=== PATIENT | female | born 1985 | race Caucasian/White ===

== ENCOUNTER → 2018-07-25 | Outpatient (CLI) | payer OTHER, MEDICAID | LOC: M RAD 11:21 | DX: G44.039 Episodic paroxysmal hemicrania, not intractable (principal) ==

== ENCOUNTER 2018-10-30 17:09 | Emergency (ER) | payer OTHER ==
[~2018-10-30] VITALS: Ht 172.7 cm; Wt 94.2 kg
[2018-10-30] MEDS ORDERED: ALPR0.5T3 (17:20)
[2018-10-30] MEDS ORDERED: VENL150C43 (17:20)
[2018-10-30] MEDS ORDERED: MIRT15TA3 (17:20)
[2018-10-30] MEDS ORDERED: AMPHET/DEXTR (17:20)
[2018-10-30] MEDS ORDERED: KETOROLAC 60 MG/2 ML VIAL (J1885) IM ONE (18:00)
[2018-10-30] MEDS ORDERED: METHOCARBAMOL 750 MG TAB PO ONE (18:00)
[2018-10-30] MEDS ORDERED: ROBA500T PO (18:27)
[2018-10-30] MEDS ORDERED: KETO10TAB PO (18:27)
[2018-10-30 18:32] VITALS: BP 120/77
== END 2018-10-30 18:34 | disposition home or self-care (01) ==
LOC: M ED 17:09
DX: M54.6 Pain in thoracic spine (principal); S02.5XXA Fracture of tooth (traumatic), initial encounter for closed fracture; X58.XXXA Exposure to other specified factors, initial encounter; Y92.89 Other specified places as the place of occurrence of the external cause; F41.9 Anxiety disorder, unspecified; M54.2 Cervicalgia; F17.210 Nicotine dependence, cigarettes, uncomplicated; Z88.1 Allergy status to other antibiotic agents; Z79.899 Other long term (current) drug therapy
CPT/HCPCS: 96372; 99283; J1885

== ENCOUNTER 2019-08-23 18:56 | Emergency (ER) | payer OTHER ==
[~2019-08-23] VITALS: Ht 172.7 cm; Wt 77.3 kg
[~2019-08-23 18:56] MED LIST: ALPR0.5T3; AMPHET/DEXTR; KETO10TAB PO; MIRT15TA3; ROBA500T PO; VENL150C43
[2019-08-23] MEDS ORDERED: MIRT1TAB15 (19:04)
[2019-08-23] MEDS ORDERED: PANT20TA2 (19:04)
[2019-08-23] MEDS ORDERED: AMPHET/DEXTR (19:04)
[2019-08-23] MEDS ORDERED: GABA-843 (19:04)
[2019-08-23] MEDS ORDERED: NS 1,000 ML IV ONE (19:45)
[2019-08-23 21:17] LABS: BASO # 0.1 10^3/uL (0.0-0.2); BASO % 0.9 % (0.0-1.0); EOS # 0.1 10^3/uL (0.0-0.5); EOS % 1.7 % (0.0-3.0); HEMOGLOBIN 13.1 g/dl (12.0-15.5); LYMPH # 2.1 10^3/uL (1.5-5.0); LYMPH % 30.4 % (24.0-44.0); MEAN CORPUSCULAR HEMOGLOBIN 31.2 pg (27.0-33.0); MEAN CORPUSCULAR HGB CONC 34.5 g/dl (32.0-36.5); MEAN CORPUSCULAR VOLUME 90.5 fl (80.0-96.0); MONO # 0.7 10^3/uL (0.0-0.8); MONO % 9.7 % (0.0-5.0); NEUTROPHILS % 56.9 % (36.0-66.0); PLATELET COUNT, AUTOMATED 347 10^3/uL (150-450)
--- NOTE | 2019-08-23 21:20 | REPVR ---
PROCEDURE INFORMATION: Exam: US Abdomen Limited, Right Upper Quadrant Exam date and time: 08/23/2019 8:43 PM Clinical history: 33 years old, female; Other: Jaundice; Abdominal pain; Epigastric; Additional info: Scleral icterus, ruq tenderness, pls look at liver also TECHNIQUE: Imaging protocol: Real-time ultrasound of the abdomen with image documentation. Examination was focused on the right upper quadrant. COMPARISON: No relevant prior studies available. FINDINGS: Liver: Mildly echogenic portal triads. Gallbladder: Contracted. No gallstones. Suspected moderate gallbladder wall thickening and mural edema. Small focus of increased echogenicity adherent to the anterior gallbladder wall with associated ringdown artifact, suggestive of adenomyomatosis. No definite pericholecystic fluid. Common bile duct: No stones. No ductal dilatation. Pancreas: Unremarkable as visualized. Right kidney: No mass. No definite stones. No hydronephrosis. IMPRESSION: 1. Contracted gallbladder with suspected moderate gallbladder wall thickening and mural edema, possibly reactive. If clinically indicated, HIDA scan would provide a more sensitive evaluation for acute gallbladder pathology. 2. Small focus of increased echogenicity adherent to the anterior gallbladder wall with associated ringdown artifact, suggestive of adenomyomatosis. 3. Mildly echogenic portal triads, a nonspecific finding which can be seen with hepatitis. Electronically signed by: Uzair Hugo On 08/23/2019 21:20:16 PM
[2019-08-23 21:34] LABS: BLOOD UREA NITROGEN 4 MG/DL (7-18); CALCIUM LEVEL 8.1 MG/DL (8.5-10.1); CARBON DIOXIDE LEVEL 27 MEQ/L (21-32); CHLORIDE LEVEL 106 MEQ/L (98-107); CREATININE FOR GFR 0.44 MG/DL (0.55-1.30); GLOMERULAR FILTRATION RATE > 60.0 (>60); GLUCOSE, FASTING 74 MG/DL (70-100); SODIUM LEVEL 139 MEQ/L (136-145)
[2019-08-23 21:35] LABS: HCG, SERUM QUALITATIVE NEGATIVE (NEGATIVE)
[2019-08-23 22:33] LABS: ALBUMIN 2.9 GM/DL (3.2-5.2); ALT/SGPT 1379 U/L (12-78); BILIRUBIN,DIRECT 6.3 MG/DL (0.0-0.2); BILIRUBIN,TOTAL 7.7 MG/DL (0.2-1.0); FREE T4 1.39 NG/DL (0.76-1.46); LIPASE 165 U/L (73-393); TOTAL PROTEIN 7.6 GM/DL (6.4-8.2)
[2019-08-23] MEDS ORDERED: LORazepam 1 MG TAB PO STA (22:43)
[2019-08-23] MEDS ORDERED: ISOVUE-370 76% 100ML VIAL (Q9967) As Ordered ONE (22:48)
--- NOTE | 2019-08-23 23:38 | REPVR ---
PROCEDURE INFORMATION: Exam: CT Abdomen And Pelvis With Contrast Exam date and time: 08/23/2019 11:13 PM Clinical history: 33 years old, female; Abnormal findings; Abnormal lab test; Elevated liver enzymes; Additional info: Jaundice, elev lfts, US shows no stone TECHNIQUE: Imaging protocol: Computed tomography of the abdomen and pelvis with intravenous contrast. Axial, coronal and sagittal reformatted images were created and reviewed. Radiation optimization: All CT scans at this facility use at least one of these dose optimization techniques: automated exposure control; mA and/or kV adjustment per patient size (includes targeted exams where dose is matched to clinical indication); or iterative reconstruction. Contrast material: ISOVUE 370; Contrast volume: 100 ml; Contrast route: IV; COMPARISON: US Abdomen 08/23/2019 8:36 PM FINDINGS: Liver: Mild hepatomegaly and nonspecific periportal edema. Gallbladder and bile ducts: Contracted gallbladder with moderate associated gallbladder wall thickening. No gallstones. Pancreas: Unremarkable. Spleen: Mild splenomegaly. Adrenals: Unremarkable. Kidneys and ureters: No mass. No radiodense calculi. No hydronephrosis. Stomach and bowel: No bowel wall thickening. No obstruction. No pneumatosis. Appendix: Findings suggestive of prior appendectomy. Intraperitoneal space: No free fluid. No organized fluid collection. No free air. Vasculature: Unremarkable. No aneurysm. Lymph nodes: No pathologically enlarged lymph nodes. Bladder: Unremarkable. Reproductive: Intrauterine device in place. Bones/joints: No acute osseous abnormality. Soft tissues: Small, fat containing supraumbilical hernia. IMPRESSION: 1. Mild hepatosplenomegaly and nonspecific periportal edema. 2. Moderate gallbladder wall thickening without radiodense gallstones, likely reactive. If clinically indicated, HIDA scan would provide a more sensitive evaluation for acute gallbladder pathology. 3. Additional findings, as above. Electronically signed by: Uzair Hugo On 08/23/2019 23:37:42 PM
[2019-08-24 00:09] VITALS: BP 114/75
[2019-08-26 13:17] LABS: HEPATITIS B SURFACE ANTIGEN NEGATIVE (NEGATIVE)
[2019-08-26 13:45] LABS: HEPATITIS B CORE ANTIBODY IGM NEGATIVE (NEGATIVE)
[2019-08-26 16:30] LABS: HEPATITIS A ANTIBODY IGM POSITIVE (NEGATIVE)
--- NOTE | 2019-09-03 13:12 | ED PDOC ---
Post-Departure Follow-Up radiology report faxed to Sophy Mendez MD Sep 03, 2019 13:12
== END 2019-08-24 00:18 | disposition home or self-care (01) ==
LOC: M ED 18:56
DX: R17 Unspecified jaundice (principal); B15.9 Hepatitis A without hepatic coma; K82.8 Other specified diseases of gallbladder; F11.21 Opioid dependence, in remission; Z79.899 Other long term (current) drug therapy; Z88.1 Allergy status to other antibiotic agents; F17.210 Nicotine dependence, cigarettes, uncomplicated
CPT/HCPCS: 36415; 74177; 76705; 80048; 80076; 83690; 84439; 84443; 84703; 85025; 86705; 86709; 86803; 87340; 96360; 99284; Q9967

== ENCOUNTER 2023-08-03 09:27 | Emergency (ER) | payer MEDICAID, OTHER ==
[~2023-08-03] VITALS: Ht 172.7 cm; Wt 92.2 kg
[~2023-08-03 09:27] MED LIST changes: +GABA-282; +MIRT1TAB15; +PANT20TA6
[2023-08-03] MEDS ORDERED: IBUP200C25 PO (09:49)
[2023-08-03 15:01] LABS: APPEARANCE, URINE HAZY (CLEAR); BACTERIA, URINE AUTO NEGATIVE (NEGATIVE); BILIRUBIN, URINE AUTO NEGATIVE (NEGATIVE); BLOOD, URINE BLOOD NEGATIVE (NEGATIVE); COLOR, URINE YELLOW (YELLOW); GLUCOSE, URINE (UA) AUTO NEGATIVE (NEGATIVE); KETONE, URINE AUTO NEGATIVE (NEGATIVE); LEUKOCYTE ESTERASE, URINE AUTO TRACE (NEGATIVE); MUCUS, URINE SMALL (NEGATIVE); NITRITE, URINE AUTO NEGATIVE (NEGATIVE); PROTEIN, URINE AUTO NEGATIVE (NEGATIVE); RBC, URINE AUTO 1 /HPF (0-3); SPECIFIC GRAVITY URINE AUTO 1.025 (1.002-1.035); SQUAMOUS EPITHELIAL CELL UR AU 6 /HPF (0-6); WBC, URINE AUTO 2 /HPF (0-3)
[2023-08-03 15:26] LABS: BARBITURATES URINE NEGATIVE (NEGATIVE); COCAINE METABOLITE URINE NEGATIVE (NEGATIVE); METHADONE URINE NEGATIVE (NEGATIVE); OPIATES URINE NEGATIVE (NEGATIVE); PHENCYCLIDINE URINE NEGATIVE (NEGATIVE)
[2023-08-03 15:27] LABS: AMPHETAMINES LEVEL URINE POSITIVE (NEGATIVE); BENZODIAZEPINES URINE POSITIVE (NEGATIVE); CANNABINOIDS URINE POSITIVE (NEGATIVE)
[2023-08-03 15:36] VITALS: BP 128/88; TEMP 98.1; O2SAT 100
== END 2023-08-03 15:38 | disposition left against medical advice (07) ==
LOC: M ED 09:27
DX: S86.112A Strain of other muscle(s) and tendon(s) of posterior muscle group at lower leg level, left leg, initial encounter (principal); M79.81 Nontraumatic hematoma of soft tissue; R60.0 Localized edema; C53.9 Malignant neoplasm of cervix uteri, unspecified; F41.9 Anxiety disorder, unspecified; F32.A Depression, unspecified; Y92.9 Unspecified place or not applicable; Y93.K1 Activity, walking an animal; Y99.9 Unspecified external cause status; Z88.1 Allergy status to other antibiotic agents; Z79.1 Long term (current) use of non-steroidal anti-inflammatories (NSAID); Z53.9 Procedure and treatment not carried out, unspecified reason

== ENCOUNTER 2025-02-06 12:10 | Outpatient (RCR) | payer OTHER ==
[~2025-02-06 12:10] MED LIST changes: +GABA-1172; -GABA-282; +IBUP200C25 PO
== END 2025-02-19 ==
LOC: M OUTALCOH 12:10
PROVIDERS: ATTEND Psychiatry & Neurology Psychiatry
DX: F13.20 Sedative, hypnotic or anxiolytic dependence, uncomplicated (principal); F14.20 Cocaine dependence, uncomplicated; F17.200 Nicotine dependence, unspecified, uncomplicated

== ENCOUNTER 2025-02-17 14:00 | Outpatient (RCR) | payer OTHER | END 2025-02-19 | LOC: M OUTALCOH 14:00 | PROVIDERS: ATTEND Psychiatry & Neurology Psychiatry | DX: F13.20 Sedative, hypnotic or anxiolytic dependence, uncomplicated (principal); F14.20 Cocaine dependence, uncomplicated; F17.200 Nicotine dependence, unspecified, uncomplicated ==

== ENCOUNTER → 2025-05-22 | Outpatient (RCR) | payer OTHER | LOC: M OUTALCOH 04-23 16:00 | PROVIDERS: ATTEND Psychiatry & Neurology Psychiatry | DX: F13.20 Sedative, hypnotic or anxiolytic dependence, uncomplicated (principal); F14.20 Cocaine dependence, uncomplicated; F17.200 Nicotine dependence, unspecified, uncomplicated | CPT/HCPCS: G0397 ×2 ==

== ENCOUNTER 2025-06-09 08:40 | Outpatient (RCR) | payer OTHER | END 2025-06-22 | LOC: M OUTALCOH 08:40 | PROVIDERS: ATTEND Psychiatry & Neurology Psychiatry | DX: F13.20 Sedative, hypnotic or anxiolytic dependence, uncomplicated (principal); F14.20 Cocaine dependence, uncomplicated; F17.200 Nicotine dependence, unspecified, uncomplicated ==